=== PATIENT | female | born 1940 | race Caucasian/White ===

== ENCOUNTER 2017-03-27 13:39 | Inpatient (IN) | payer MEDICARE ==
[~2017-03-27] VITALS: Ht 157.5 cm; Wt 69.6 kg
[2017-04-02] MEDS ORDERED: TRAM50TA PO (13:38)
[2017-04-02] MEDS ORDERED: METO25TA6 PO (13:38)
[2017-04-02] MEDS ORDERED: OXYB5TAB10 PO (13:38)
[2017-04-02] MEDS ORDERED: PRAV10TA PO (13:38)
--- NOTE | 2017-04-14 06:14 | MH ---
cc: CHRISTINE BLANCAS M.D. DATE OF ADMISSION: 04/14/2017 ADMISSION DIAGNOSIS Lumbar spinal stenosis with instability. HISTORY This patient is a 77-year-old female with significant lumbar spinal stenosis at L4-5 and left greater than right leg pain. Investigative studies show evidence of instability at the L4-5 level. Despite conservative care she is painful and symptomatic. This patient presents for surgical treatment. PAST MEDICAL HISTORY, SOCIAL HISTORY, FAMILY HISTORY, REVIEW OF SYSTEMS See attached notes. PHYSICAL EXAMINATION GENERAL: A 77-year-old female in moderate distress with her back, hip and legs. HEENT: Normocephalic, atraumatic. Pupils equal, round, reactive to light and accommodation. Extraocular motions intact. NECK: Supple. CHEST: Clear. HEART: Regular rate and rhythm. ABDOMEN: Soft, nontender with normoactive bowel sounds. MUSCULOSKELETAL EXAMINATION: Thoracolumbar spine with restricted motion, pain with range of motion. [id number] is positive. Motor examination shows weakness of extensor hallucis longus. IMPRESSION 1. Lumbar spinal stenosis L4-5. 2. Lumbar instability. PLAN Bilateral lumbar laminectomy L4-L5 from the left, lateral recess decompression, posterior spinal fusion, posterolateral interbody fusion, interbody cage, instrumentation, bone grafting. CONSENT There are risks with surgery including infection, bleeding, loss of motion, continued pain, need for further surgery, neurologic and vascular injury. The patient understands these issues and wishes to press on with surgery as outlined above. MD JOSEPH Canales/SIERRA /11:05 PM /6:11 AM
[2017-04-14] MEDS ORDERED: GENTAMICIN SULFATE 80 MG/2 ML VIAL ONE (07:50)
[2017-04-14] MEDS ORDERED: GELFOAM SIZE 100 ONE (07:50)
[2017-04-14] MEDS ORDERED: VANCOMYCIN 1000 MG/NS 250 ML (for <70 kg) IV SCH ×2 (08:15)
[2017-04-14] MEDS ORDERED: LACTATED RINGER'S 1000 ML IV PRN (08:15)
[2017-04-14] MEDS ORDERED: ceFAZolin 2 GM PREMIX 50 ML IV SCH (08:15)
[2017-04-14] MEDS ORDERED: METOPROLOL TARTRATE 25 MG TAB PO PRN (08:15)
[2017-04-14] MEDS ORDERED: POVIDONE IODINE 5% (ANTISEPSIS KIT) 4 APPLICATIONS EACH NARE PRN (08:15)
[2017-04-14] MEDS ORDERED: INSULIN HUMAN REGULAR 1,000 UNITS/10 ML VIAL SQ PRN (08:15)
[2017-04-14] MEDS ORDERED: POVIDONE IODINE 7.5% SCRUB 118 ML BOTTLE TOPICAL SCH (08:15)
[2017-04-14] MEDS ORDERED: SODIUM CHLORID 0.9% 500 ML IV PRN (08:15)
[2017-04-14] MEDS ORDERED: CHLORHEXIDINE GLUCONATE 2 % 1 PACK (2 CLOTHS) TOPICAL PRN (08:15)
[2017-04-14 08:21] VITALS: BP 118/79; PULSE 61; RESP 18; TEMP 98; O2SAT 94
[2017-04-14] MEDS ORDERED: BUPIVACAINE/EPINEPHRINE 0.5% 50 ML VIAL ONE (09:00)
[2017-04-14] MEDS ORDERED: DEXAMETHASONE SOD PHOS 4 MG/ML VIAL ONE (09:18)
[2017-04-14] MEDS ORDERED: ceFAZolin INJ 1,000 MG VIAL IV ONE (10:15)
[2017-04-14] MEDS ORDERED: ePHEDrine/NS 25 MG/5 ML SYR IV ONE (12:00)
[2017-04-14] MEDS ORDERED: ONDANSETRON HCL 4 MG/2 ML VIAL IV PUSH ONE (12:00)
[2017-04-14] MEDS ORDERED: SODIUM CHLOR 0.9% 1000 ML INJ 1,000 ML IV ONE (12:00)
[2017-04-14] MEDS ORDERED: ACETAMINOPHEN 1000 MG/100 ML VIAL IV ONE (12:00)
[2017-04-14] MEDS ORDERED: PROPOFOL 200 MG/20 ML AMP IV ONE (12:00)
[2017-04-14] MEDS ORDERED: PHENYLEPH/NS 1000 MCG/10 ML SYR IV ONE (12:00)
[2017-04-14] MEDS ORDERED: NORMOSOL R INJ 1,000 ML IV ONE (12:00)
[2017-04-14] MEDS ORDERED: NEOSTIGMINE 3 MG/3 ML SYR IV ONE (12:00)
[2017-04-14] MEDS: LACTATED RINGER'S 1000 ML INJ 1,000 ML IV SCH (13:54)
[2017-04-14] MEDS ORDERED: SODIUM CHLORIDE 0.9% FLUSH 5 ML FLUSH IVF PRN (14:00)
[2017-04-14] MEDS ORDERED: NALOXONE HCL 0.4 MG/ML AMP IV PRN (14:00)
[2017-04-14] MEDS ORDERED: ALUMINUM/MAGNESIUM/SIMETH 30 ML CUP PO PRN (14:00)
[2017-04-14] MEDS ORDERED: ONDANSETRON HCL 4 MG/2 ML VIAL IV PRN (14:00)
[2017-04-14] MEDS ORDERED: MORPHINE SULFATE 4 MG/ML INJ IV PUSH PRN (14:00)
[2017-04-14] MEDS ORDERED: SOD PHOSPHATE/SOD BIPHOSPHATE (ADULT) ENEMA 133ML PR PRN (14:00)
[2017-04-14] MEDS ORDERED: BISACODYL 10 MG SUPP RECTAL PRN (14:00)
[2017-04-14] MEDS ORDERED: ACETAMINOPHEN/HYDROcodone 325 MG/7.5 MG TAB PO PRN (14:00)
--- NOTE | 2017-04-14 14:04 | PD.OP ---
cc: Carter Johnson MD Operative Report Date of Surgery: Apr 14, 2017 Preoperative Diagnosis: Spondylolisthesis L4 5, grade 1. Lumbar spinal stenosis. Lumbar radiculopathy Postoperative Diagnosis: Same. CSF fistula, L4 5 central Procedure: Bilateral lumbar laminectomy from the left L4, L5 with bilateral lateral recess decompression. Subtotal facet resection left L4 5 with foraminal decompression. Repair of CSF fistula, midline, L4 5. Posterior spinal fusion, L4 5. Posterior lateral interbody fusion, L4 5. Posterior lateral interbody cage L4 5, from the left. Posterior spinal segmental instrumentation, L4 5. Major bone grafting of the lumbar spine Anesthesia: Gen. Surgeon: Carter Johnson [employer] Teacher(s): SYLVIA Gupta Operation and Findings: EBL: 300 ml NOTE: Mamie Gupta PA-C was present for the entire surgical procedure as my assisted living assistant. In my medical opinion her skill and care was necessary for proper management of this patient INDICATIONS: This patient is a 77-year-old female with debilitating back pain. She has radiating leg pain with weakness. Studies shows evidence of an unstable spondylolisthesis at L4 5 with severe discogenic changes. There is evidence of nerve root compromise bilaterally at that level. She now presents for surgical treatment. INSTRUMENTATION: Cage: Staxx, 22, tapered Screws: Solco titanium, percutaneous on the right and open on left PROCEDURE: The patient brought to the operating room and anesthetized the supine position. The patient positioned prone on the Franko frame on the Arash table. All pressure points are protected. The back was scrubbed with alcohol followed by Hibiclens followed by ChloraPrep and draped sterilely and antibiotics were given within a routine time window. A timeout was done. Lateral radiographic images used to identify the proper level for the procedure. Compared care for the preoperative studies. Skin markings were made anticipating surgical treatment. A left paramedian incision was made. The lamina and facet joint was exposed. We used the proper retractor was positioned over this region. The microscope was rolled into the field for visualization. A high-speed bur was used to take the lamina down and doing a subtotal facet resection on the left side. We extended across midline allowing a bilateral decompression. There was a very tight area midline at the L4 5 region. A small leak of spinal fluid was encountered. This is exposed further. Under direct scope, 2 7-0 Prolene sutures were placed and sutured taking care to avoid any injury to the crossing nerve roots. This appeared be watertight and we were able to hold the ventilator at 45 mmHg without any evidence of leaking posterior spinal fluid. A small piece of DuraGen was placed over this region followed by FloSeal. This appeared be a watertight seal. The exiting and crossing nerve roots were completely decompressed. A total discectomy was accomplished. The disc space was prepared. All cartilaginous material from the disc space was removed. A combination of demineralized bone matrix and Nucel stem cells were mixed together on the back table.. These were injected into the disc space. The cage was then placed according to plant sciences professor's recommendation and deployed. Position was satisfactory. Additional bone graft was placed into the disc space. The outer edge of the facet joint was identified and prepared. Under fluoroscopic images, a bur was used to gain entrance into the pedicle followed by placement of a blunt probe, an awl and placement of proper length screws. Each screw was charged with electric current there are no abnormal potentials registered in either lower extremity. A proper length leta was fitted and attached and tightened according to plant sciences professor's recommendation. On the left side at L4, there was inadequate fixation of the 6.5 mm screw. This was then changed to a 7.5 mm screw 5 mm longer to gain purchase and aid in proper stabilization. The wound was irrigated copiously. Bone grafting was placed along the lateral gutter in the region of the transverse process across this level. This was closed in layers with #1 Vicryl, 2-0 Vicryl and running intradermal 3-0 Vicryl followed by Steri-Strips and benzoin. On the contralateral side a separate exposure was made. The outer edge of the facet joints were identified. A bur was used to gain entrance into the pedicle followed by placement of a probe and proper length screws. Each screw was charged with electric current and no abnormal potentials registered in either lower extremity. The wound was irrigated copiously. Bone graft placed along the transverse process across this level. It was closed in layers using #1 Vicryl, 2-0 Vicryl and running intradermal 3-0 Vicryl followed by Steri-Strips and benzoin. Intraoperative radiographs were obtained. No complication was appreciated. The patient had a sterile dressing applied. The patient was awakened and taken to recovery room in satisfactory condition. FINDINGS: There was evidence of a very tight area centrally leading to a small CSF fistula. This was repaired under the microscope with 7-0 Prolene sutures in a watertight seal. Care was taken to make sure there is no involvement in any of the crossing nerve roots. The bilateral decompression appeared be very satisfactory. Cage position was midline and satisfactory. No other complication was appreciated. Carter Johnson MD Apr 14, 2017 14:04
[2017-04-14] MEDS ORDERED: HYDR-3580 PO (14:05)
[2017-04-14] MEDS ORDERED: DO NOT ADM ANY ANTICOAGULANT DRUGS PRN (14:32)
[2017-04-14] MEDS ORDERED: Post-op Orders (for Pharmacy) MISC XX ONE (14:37)
[2017-04-14] MEDS ORDERED: fentaNYL CITRATE 250 MCG/5 ML AMP ONE (14:45)
[2017-04-14] MEDS ORDERED: *morphine SULFATE 8 MG/ML PERIprocedure ONLY ONE (15:02)
[2017-04-14] MEDS: ACETAMINOPHEN/HYDROcodone 325 MG/7.5 MG TAB PO PRN ×2 (19:38→23:07)
[2017-04-14 20:00] VITALS: BP 130/72; PULSE 65; RESP 17; TEMP 96.4; O2SAT 96
--- NOTE | 2017-04-14 20:18 | RADRPT ---
EXAM DATE/TIME: 04/14/2017 13:39 [facility] COMPARISON: No previous studies available for comparison. INDICATIONS : L4-5 fusion. MEDICAL HISTORY : Carcinoma, breast. Arthritis. Hypertension. Stroke. SURGICAL HISTORY : Tubal ligation. ENCOUNTER: Initial ACUITY: 1 day PAIN SCORE: Non-responsive. LOCATION: Lumbar spine. FINDINGS: 2 magnified C-arm spot views show bilateral transpedicular posterior fixation at L4 and L5 with inter vening bone graft device and vertical stabilizing bars. A minimal grade 1 anterolisthesis. CONCLUSION: Limited images as detailed above. Jose Krishnan Jr., MD on April 14, 2017 at 20:16 Board Certified Radiologist. This report was verified electronically.
[2017-04-14] MEDS: SODIUM CHLORIDE 0.9% FLUSH 5 ML FLUSH IVF SCH (21:00)
[2017-04-14] MEDS ORDERED: ZOLPIDEM TARTRATE 5 MG TAB PO PRN (21:00)
[2017-04-14 21:31] VITALS: O2SAT 96
[2017-04-14] MEDS: METOPROLOL SUCCINATE 25 MG EXTENDED RELEASE TAB PO SCH (23:07)
[2017-04-14] MEDS: OXYBUTYNIN CHLORIDE 5 MG TAB PO SCH (23:07)
[2017-04-14] MEDS: PRAVASTATIN SOD 10 MG TAB PO SCH (23:08)
[2017-04-15] VITALS (7 sets, daily range): BP systolic 95–127; BP diastolic 52–81; PULSE 56–68; RESP 17–19; TEMP 96.2–97.5; O2SAT 94–97
[2017-04-15] MEDS: LACTATED RINGER'S 1000 ML INJ 1,000 ML IV SCH ×2 (02:35→14:54)
[2017-04-15] MEDS: ACETAMINOPHEN/HYDROcodone 325 MG/7.5 MG TAB PO PRN ×2 (07:55→12:01)
[2017-04-15] MEDS: SODIUM CHLORIDE 0.9% FLUSH 5 ML FLUSH IVF SCH ×2 (09:00→20:38)
[2017-04-15] MEDS ORDERED: WALKER WHEELS/F1 MIS (11:23)
[2017-04-15] MEDS ORDERED: COMMODE 3-IN-11 MIS (11:24)
--- NOTE | 2017-04-15 11:24 | HHI.DCPOC ---
Discharge Care Plan Diagnosis: (1) Lumbar spinal stenosis (2) Cerebrospinal fluid leak due to lumbar surgery (3) Degeneration of intervertebral disc of lumbar region Your Health Problems Are: Incision/Drains Swelling Goals to Promote Your Health * To prevent worsening of your condition and complications * To maintain your health at the optimal level Directions to Meet Your Goals Take your medications as prescribed Follow your dietary instruction Follow activity as directed Keep your appointments as scheduled Take your immunizations and boosters as scheduled If your symptoms worsen call your PCP, if no PCP go to Urgent Care Center or Emergency Room Smoking is Dangerous to Your Health. Avoid second hand smoke Call the 24-hour hour crisis hotline for domestic abuse at [facility] Apr 15, 2017 11:24
--- NOTE | 2017-04-15 11:25 | HHI.DS ---
Discharge Summary Admission Date Apr 14, 2017 at 07:32 Discharge Date: Apr 17, 2017 Admitting Diagnosis see below Diagnosis: (1) Lumbar spinal stenosis Diagnosis: Principal (2) Cerebrospinal fluid leak due to lumbar surgery Diagnosis: Secondary (3) Degeneration of intervertebral disc of lumbar region Diagnosis: Principal Procedures Bilateral Laminectomy L45 from left, subtotal facet resection; repair CSF leak; Posterior lumbar fusion L45 with posterior instrumentation and interbody cage , bone graft. Brief History This is a 77 year old female patient... Hospital Course Surgical treatment was performed on the day of admission. She was found to have a CSF leak intraoperatively which was successfully repaired. She recovered well in PACU and was transferred to the orthopaedic floor. She was ordered to be supine in bed for 24 hours. After 24hours she was no evidence of substantial headache or dizziness so out of bed activity was ordered. Pain was controlled with IV and oral medications. She was compliant with physical therapy and all restrictions. She was compliant with her lumbar brace. After 3 days he was found to be stable and discharged to long-term. She was instructed to continue therapy, pursue a high fiber diet for 3-5 days and to continue her lumbar brace for 10-12 weeks. She was given a prescription of Supercircuits for outpatient use. Pt Condition on Discharge: Stable Discharge Disposition: Disch w/ Home Health Serv Discharge Instructions Diet Instructions: As Tolerated, No Restrictions, High Fiber Diet Activities You Can Perform: Weight Bearing as Laurent, See Additionl Instruction Activities to Avoid: Strenuous Activity Additional Activity Instruc.: Brace when out of bed New Medications: Commode 3-in-1 (Commode 3-in-1) 1 Mis Mis 1 EA .ROUTE DIRECTED #1 Ref 0 EA Walker with Front Wheels (Walker with Front Wheels) 1 Mis Mis 1 EA .ROUTE DIRECTED #1 Ref 0 EA Hydrocodone-Acetaminophen (Hydrocodone-Acetaminophen) 7.5-325 mg Tab 1 TAB PO Q4H PRN PAIN SCALE 1 TO 5 #50 TAB Continued Medications: Metoprolol Succinate ER 24 HR (Metoprolol Succinate ER 24 HR) 25 Mg Tab 25 MG PO HS #30 Ref 0 TAB Oxybutynin (Ditropan) 5 Mg Tab 5 MG PO HS Urinary Symptom Managemen #60 Ref 0 TAB Pravastatin (Pravastatin) 10 Mg Tab 10 MG PO HS Cholesterol Management #30 Ref 0 TAB Tramadol (Tramadol) 50 Mg Tab 50 MG PO Q8H PRN PAIN Ref 0 TAB [facility] Apr 15, 2017 11:25
--- NOTE | 2017-04-15 11:27 | HHI.FF ---
Face to Face Verification Diagnosis: (1) Lumbar spinal stenosis (2) Cerebrospinal fluid leak due to lumbar surgery (3) Degeneration of intervertebral disc of lumbar region Physical Therapy Gait training, Safety evaluation, Transfer training, bed to chair S/P Spinal Fusion: Gait training with walker, Weight bearing as tolerated, No twisting of torso, No bending Additional Instructions PT 3 days/wk for 1 week. WBAT. Out of bed w brace. No lifting/bending/ twisting. Nursing RN Days per Week: 5 x Week(s): 1 Dressing Changes: Daily dressing change, 4x4s Additional Instructions RN 5 days/wk for 1 week. Dry dressing changes daily w 4x4s and coverderm. I have seen patient Chio De Los Santos on 04/15/17. My clinical findings support the need for the requested home health care services because: Limited ability to care for self High risk of falls I certify that my clinical findings support that this patient is homebound because: Post-op weakness Unsteady gait/balance [facility] Apr 15, 2017 11:27
--- NOTE | 2017-04-15 12:54 | PD.ORT.PN ---
Subjective Subjective Remarks Laying flat in bed. Family member at bedside. Moderate back pain and aching. No new leg pain. States 'her legs seem fine'. No complaints or headaches or throbbing head pains. No dizziness. No new CP or SOB. Objective Vitals Vital Signs Date Time Temp Pulse Resp B/P Pulse Ox O2 Delivery O2 Flow Rate FiO2 04/15/17 12:00 96.7 56 17 95/53 95 04/15/17 09:41 97 Nasal Cannula 3.00 04/15/17 07:50 96.2 58 17 101/57 96 04/15/17 04:00 96.2 56 17 117/70 97 04/15/17 01:20 Nasal Cannula 2.00 04/15/17 00:02 18 04/15/17 00:00 97.1 66 17 127/67 95 04/14/17 21:31 96 Nasal Cannula 3.00 04/14/17 20:00 96.4 65 17 130/72 96 04/14/17 16:45 65 15 127/76 96 Nasal Cannula 3 04/14/17 16:15 67 15 117/68 96 Nasal Cannula 3 04/14/17 15:45 64 15 129/69 96 Nasal Cannula 3 04/14/17 15:30 63 17 123/69 98 Nasal Cannula 3 04/14/17 15:15 65 16 123/71 98 Nasal Cannula 3 04/14/17 15:00 67 16 135/73 100 Nasal Cannula 3 04/14/17 14:45 70 17 123/68 100 Nasal Cannula 3 04/14/17 14:39 98.3 70 15 122/64 100 Nasal Cannula 3 I/O 04/14/17 04/14/17 04/14/17 04/15/17 04/15/17 04/15/17 07:00 15:00 23:00 07:00 15:00 23:00 Intake Total 1700 ml 733 ml 896 ml Output Total 1250 ml 100 ml 375 ml Balance 450 ml 633 ml 521 ml Intake Oral 300 ml IV Total 733 ml 596 ml Other 1700 ml Output Urine Total 1000 ml 100 ml 375 ml Estimated Blood Loss 250 ml # Bowel Movements 0 Procedures posterior lumbar fusion... repair cerebrospinal fluid leak. Objective Remarks Laying supine, Family member at bedside NAD VSS L/S Dressing c/d/i, no new drainage, mild spasm paraspinals, no erythema +motor at / ehl, +sens, +nvi neg homans bilat Assessment & Plan Ortho Post Op Day #: 1 Problem List: (1) Lumbar spinal stenosis (2) Cerebrospinal fluid leak due to lumbar surgery (3) Degeneration of intervertebral disc of lumbar region Assessment and Plan pod#1 s/p Lami Fusion L45, repair CSF leak Ok to increase activity to OOB w assistance. Ambulate w walker OOB w brace for 10-12 weeks. Dry dressing changes beginning tomorrow. Increase norco 7.5 to norco 10. D/C reyes catheter. D/C planning, home w [facility] th or thu. F2F written for one week. [facility] Apr 15, 2017 12:54
[2017-04-15] MEDS ORDERED: ACETAMINOPHEN/HYDROcodone 325 MG/10 MG TAB PO PRN (13:00)
[2017-04-15] MEDS: ACETAMINOPHEN/HYDROcodone 325 MG/10 MG TAB PO PRN ×2 (15:41→20:38)
[2017-04-15] MEDS: METOPROLOL SUCCINATE 25 MG EXTENDED RELEASE TAB PO SCH (20:38)
[2017-04-15] MEDS: DOCUSATE SODIUM 100 MG CAP PO SCH (20:38)
[2017-04-15] MEDS: PRAVASTATIN SOD 10 MG TAB PO SCH (20:38)
[2017-04-15] MEDS: OXYBUTYNIN CHLORIDE 5 MG TAB PO SCH (20:38)
[2017-04-16] VITALS (8 sets, daily range): BP systolic 111–144; BP diastolic 64–82; PULSE 57–65; RESP 15–19; TEMP 96.1–98.7; O2SAT 94–98
[2017-04-16] MEDS: LACTATED RINGER'S 1000 ML INJ 1,000 ML IV SCH (04:48)
[2017-04-16] MEDS: ACETAMINOPHEN/HYDROcodone 325 MG/10 MG TAB PO PRN ×3 (05:18→20:09)
[2017-04-16] MEDS: DOCUSATE SODIUM 100 MG CAP PO SCH ×2 (08:35→20:09)
--- NOTE | 2017-04-16 08:38 | PD.ORT.PN ---
Subjective Subjective Remarks Laying in bed. Again states she has moderate back pain and aching. She denies any new leg pain. RN who is at bedside states she walked little yesterday. Her only effort was getting in the chair. Patient continues to deny any headaches. No new CP or SOB. Objective Vitals Vital Signs Date Time Temp Pulse Resp B/P Pulse Ox O2 Delivery O2 Flow Rate FiO2 04/16/17 07:38 97.1 59 16 111/64 95 04/16/17 04:00 97.3 63 19 118/68 94 04/16/17 00:00 96.1 65 15 124/66 94 04/15/17 20:00 97.5 68 19 119/81 94 04/15/17 15:51 96.8 62 17 95/52 96 04/15/17 12:00 96.7 56 17 95/53 95 04/15/17 09:41 97 Nasal Cannula 3.00 I/O 04/15/17 04/15/17 04/15/17 04/16/17 04/16/17 04/16/17 07:00 15:00 23:00 07:00 15:00 23:00 Intake Total 896 ml 500 ml 780 ml Output Total 375 ml 325 ml Balance 521 ml 175 ml 780 ml Intake Oral 300 ml 500 ml 780 ml IV Total 596 ml Output Urine Total 375 ml 325 ml Bladder Scan Volume Amount 150 ml # Voids 0 # Bowel Movements 0 0 0 Procedures Bilateral Laminectomy L45 from left, subtotal facet resection; repair CSF leak; Posterior lumbar fusion L45 with posterior instrumentation and interbody cage , bone graft. Objective Remarks Laying in bed, NAD VSS L/S Dressing c/d/i, no new drainage, no erythema +motor at / ehl, +sens, +nvi neg homans bilat Assessment & Plan Ortho Post Op Day #: 2 Problem List: (1) Lumbar spinal stenosis (2) Cerebrospinal fluid leak due to lumbar surgery (3) Degeneration of intervertebral disc of lumbar region Assessment and Plan pod#1 s/p Lami Fusion L45, repair CSF leak I encouraged OOB w assistance and ambulation today. Walker as needed. OOB w brace for 10-12 weeks. Dry dressing changes daily. [place] for pain control. D/C planning, home w [facility] today if ambulatory. If she struggles consider d/c tomorrow. F2F written for one week. [facility] Apr 16, 2017 08:38
[2017-04-16] MEDS: SODIUM CHLORIDE 0.9% FLUSH 5 ML FLUSH IVF SCH ×2 (09:00→20:09)
[2017-04-16] MEDS: METOPROLOL SUCCINATE 25 MG EXTENDED RELEASE TAB PO SCH (20:09)
[2017-04-16] MEDS: OXYBUTYNIN CHLORIDE 5 MG TAB PO SCH (20:09)
[2017-04-16] MEDS: PRAVASTATIN SOD 10 MG TAB PO SCH (20:09)
[2017-04-17] MEDS: LACTATED RINGER'S 1000 ML INJ 1,000 ML IV SCH (04:24)
[2017-04-17] MEDS: ACETAMINOPHEN/HYDROcodone 325 MG/10 MG TAB PO PRN ×2 (04:45→09:24)
[2017-04-17 07:26] VITALS: BP 118/64; PULSE 61; RESP 18; TEMP 96.8; O2SAT 91
--- NOTE | 2017-04-17 08:10 | PD.ORT.PN ---
Subjective Subjective Remarks Laying in bed. She continues to note significant low back pain. She has been struggling with giving effort with PT or ambulating independently. She talked to CM yesterday and prefers d/c to SNF. She denies any new leg pain.Patient continues to deny any headaches. No new CP or SOB. Objective Vitals Vital Signs Date Time Temp Pulse Resp B/P Pulse Ox O2 Delivery O2 Flow Rate FiO2 04/17/17 07:26 96.8 61 18 118/64 91 04/16/17 23:54 98.7 61 16 144/82 95 04/16/17 19:00 97.3 63 17 116/69 98 04/16/17 17:35 96 21 04/16/17 15:31 97.7 62 17 133/69 96 04/16/17 11:46 96.9 57 16 114/64 95 I/O 04/16/17 04/16/17 04/16/17 04/17/17 04/17/17 04/17/17 07:00 15:00 23:00 07:00 15:00 23:00 Intake Total 250 ml 480 ml Output Total 1000 ml 450 ml Balance -750 ml 30 ml Intake Oral 250 ml 480 ml Output Urine Total 1000 ml 450 ml Bladder Scan Volume Amount 150 ml # Bowel Movements 0 0 Procedures Bilateral Laminectomy L45 from left, subtotal facet resection; repair CSF leak; Posterior lumbar fusion L45 with posterior instrumentation and interbody cage , bone graft. Objective Remarks Laying in bed, NAD VSS L/S Dressing c/d/i, no new drainage, no erythema +motor at / ehl, +sens, +nvi neg homans bilat Assessment & Plan Ortho Post Op Day #: 3 Problem List: (1) Lumbar spinal stenosis (2) Cerebrospinal fluid leak due to lumbar surgery (3) Degeneration of intervertebral disc of lumbar region Assessment and Plan pod#1 s/p Lami Fusion L45, repair CSF leak Ortho stable. Ok to d/c to [facility] today. OOB w brace for 10-12 weeks. Walker as needed. Encouraged IS daily. Dry dressing changes daily. [place] for pain control. F/U in 2 weeks as scheduled. DME written. [facility] Apr 17, 2017 08:10
[2017-04-17 08:21] VITALS: O2SAT 92
== END 2017-04-17 10:58 | DRG 460 ==
LOC: HSDI 04-14 07:32 → N06A 04-14 18:19
PROVIDERS: ADMIT Orthopaedic Surgery Orthopaedic Surgery of the Spine; ATTEND Orthopaedic Surgery Orthopaedic Surgery of the Spine
PROC: 0ST20ZZ Resection of Lumbar Vertebral Disc, Open Approach (ICD-10-PCS; 2017-04-14)
PROC: 0SG0071 Fusion of Lumbar Vertebral Joint with Autologous Tissue Substitute, Posterior Approach, Posterior Column, Open Approach (ICD-10-PCS; 2017-04-14)
PROC: 01NB0ZZ Release Lumbar Nerve, Open Approach (ICD-10-PCS; 2017-04-14)
PROC: 00UT0JZ Supplement Spinal Meninges with Synthetic Substitute, Open Approach (ICD-10-PCS; 2017-04-14)
PROC: 03HY32Z Insertion of Monitoring Device into Upper Artery, Percutaneous Approach (ICD-10-PCS; 2017-04-14)
PROC: 0SG00A1 (ICD-10-PCS; principal; 2017-04-14 09:42)
DX: M48.06 Spinal stenosis, lumbar region (principal); I69.354 Hemiplegia and hemiparesis following cerebral infarction affecting left non-dominant side; G97.41 Accidental puncture or laceration of dura during a procedure; I10 Essential (primary) hypertension; M53.2X6 Spinal instabilities, lumbar region; M43.16 Spondylolisthesis, lumbar region; E78.5 Hyperlipidemia, unspecified; M51.16 Intervertebral disc disorders with radiculopathy, lumbar region; Y83.8 Other surgical procedures as the cause of abnormal reaction of the patient, or of later complication, without mention of misadventure at the time of the procedure
CPT/HCPCS: 72100; 76000; 86850; 86900; 86901; 94150; C1713; J0131; J0690; J1100; J1580; J2270; J2370; J2405; J2710; J3010; J3370; J7030; J7050; J7120

== ENCOUNTER → 2017-04-02 | Outpatient (CLI) | payer MEDICARE ==
[~2017-04-02] MED LIST: COMMODE 3-IN-11 MIS; FOLI800T12 PO; GLUCTAB47 PO; HYDR-3580 PO; METO25TA6 PO; OXYB5TAB10 PO; PRAV10TA PO; PREVALITE PO; SENN1TAB11 PO; SULF1TAB47 PO; TAB-TAB PO; TRAM50TA PO; VENL75TA91 PO; WALKER WHEELS/F1 MIS
[2017-04-02 12:02] LABS: AUTOMATED NEUTROPHIL # 3.8 TH/MM3 (1.8-7.7); BASOPHIL % 0.3 % (0.0-2.0); EOSINOPHIL # 0.3 TH/MM3 (0-0.4); EOSINOPHIL % 4.4 % (0.0-4.0); HEMATOCRIT 39.1 % (35.0-46.0); HEMO FLAGS DIFF FINAL; LYMPH % 29.7 % (9.0-44.0); LYMPHOCYTE # 2.1 TH/MM3 (1.0-4.8); MEAN CELL VOLUME 92.3 FL (80.0-100.0); MEAN CORPUSCULAR HEMOGLOBIN 30.9 PG (27.0-34.0); MEAN CORPUSCULAR HGB CONC 33.5 % (32.0-36.0); MONO % 12.6 % (0.0-8.0); PLATELET COUNT 293 TH/MM3 (150-450); RED BLOOD COUNT 4.24 MIL/MM3 (4.00-5.30); RED CELL DISTRIBUTION WIDTH 14.1 % (11.6-17.2); WHITE BLOOD COUNT 7.2 TH/MM3 (4.0-11.0)
[2017-04-02 12:12] LABS: APTT (PATIENT) 27.6 SEC (24.3-30.1); PROTHROMBIN TIME - PATIENT 10.8 SEC (9.8-11.6)
[2017-04-02 12:28] LABS: BACTERIA, URINE MOD /hpf; BLOOD, URINE NEG (NEG); COMMENT (UR) CULTURE INDICATED; CULTURE IF INDICATED CULTURE INDICATED; GLUCOSE,URINE NEG (NEG); HYALINE CAST, URINE 1 /lpf (RARE); KETONE, URINE NEG (NEG); MUCUS URINE FEW /lpf (OCC); NITRITE,URINE POS (NEG); SQUAMOUS EPITHELIAL CELL URINE <1 /hpf (0-5); URINE COLOR YELLOW (YELLW/STRAW)
== END ==
LOC: CPRE 10:56
PROVIDERS: ATTEND Orthopaedic Surgery Orthopaedic Surgery of the Spine
DX: Z01.812 Encounter for preprocedural laboratory examination (principal); M48.06 Spinal stenosis, lumbar region; M96.1 Postlaminectomy syndrome, not elsewhere classified; M53.2X6 Spinal instabilities, lumbar region; R82.99 Other abnormal findings in urine
CPT/HCPCS: 36415; 81001; 85025; 85610; 85730; 87086

== ENCOUNTER → 2017-04-13 | Outpatient (CLI) | payer MEDICARE ==
[~2017-04-13] MED LIST changes: +ACETAMINOPHEN 1000 MG/100 ML VIAL IV ONE; -FOLI800T12 PO; -GLUCTAB47 PO; -PREVALITE PO; -SENN1TAB11 PO; -SULF1TAB47 PO; -TAB-TAB PO; -VENL75TA91 PO
[2017-04-13 10:08] LABS: BACTERIA, URINE RARE /hpf; MUCUS URINE FEW /lpf (OCC); SQUAMOUS EPITHELIAL CELL URINE <1 /hpf (0-5)
[2017-04-13 10:09] LABS: BLOOD, URINE NEG (NEG); GLUCOSE,URINE NEG (NEG); KETONE, URINE NEG (NEG); NITRITE,URINE NEG (NEG); PH, URINE 6.5 (5.0-8.5); URINE COLOR LIGHT-YELLOW (YELLW/STRAW)
== END ==
LOC: CPRE 09:09
PROVIDERS: ATTEND Orthopaedic Surgery Orthopaedic Surgery of the Spine
DX: Z01.812 Encounter for preprocedural laboratory examination (principal); N39.0 Urinary tract infection, site not specified
CPT/HCPCS: 81001; J0131